=== PATIENT | female | born 1955 | race Caucasian/White ===

== ENCOUNTER → 2023-09-08 | Outpatient (CLI) | payer MEDICARE ==
[~2023-09-08] MED LIST: AERONEB GO1 EACH INH; ALBU2.5V5 INH; ALBU90OI INH; ALORA1 EA11; CYMBALTA60 M1 PO; DOXY100 PO; HOME NEBULIZER1 EACH INH; PRED20 PO; QVAR REDIHALE10.6 G3 INH
[2023-09-08 14:01] LABS: Source, Urine Clean Catch
[2023-09-08 15:03] LABS: Appearance, Urine Cloudy (Clear); Bilirubin, Urine Neg (Neg); Blood, Urine 5+ (Neg); Color, Urine Yellow (P-Yellow); Glucose Qualitative, Urine Neg (Neg); Ketones, Urine Neg (Neg); Leukocyte Esterase, Urine Neg (Neg); Nitrite, Urine Neg (Neg); Protein, Urine 3+ (Neg); Urobilinogen, Urine NORM (Normal)
[2023-09-08 15:34] LABS: Bacteria Many /hpf; Red Blood Cells, Urine TNTC /hpf (0-2); Squamous Epithelial Cells Mod /hpf (Few)
== END ==
LOC: LAB SHORT 13:59 → LAB 13:59
PROVIDERS: Physician Assistant
DX: R35.0 Frequency of micturition (principal)
CPT/HCPCS: 81001; 87086

== ENCOUNTER 2023-11-17 10:27 | Inpatient (IN) | payer MEDICARE ==
[~2023-11-17] VITALS: Ht 170.2 cm; Wt 45.5 kg
[~2023-11-17 10:27] MED LIST changes: -ALORA1 EA11; +ESTRADIOL1 MG PO
[2023-11-17] MEDS ORDERED: NS 1,000 ML IV SCH ×3 (10:40→19:05)
[2023-11-17 11:12] LABS: BASOPHILS ABSOLUTE AUTO 0.07 K/mm3 (0.00-0.23); BASOPHILS PERCENT AUTO 1 % (0-2); EOSINOPHILS PERCENT AUTO 1 % (0-6); Hematocrit 31.7 % (33.0-51.0); Hemoglobin 10.3 g/dL (11.5-16.0); IMMATURE GRAN ABSOLUTE AUTO 0.03 K/mm3 (0.00-0.10); IMMATURE GRAN PERCENT AUTO 0 % (0-1); LYMPHOCYTES ABSOLUTE AUTO 1.93 K/mm3 (0.84-5.20); LYMPHOCYTES PERCENT AUTO 25 % (21-46); MONOCYTES ABSOLUTE AUTO 0.57 K/mm3 (0.16-1.47); MONOCYTES PERCENT AUTO 7 % (4-13); Mean Corpuscular HGB Conc 32.5 g/dL (31.5-36.5); Mean Corpuscular Volume 98 fL (80-100); NEUTROPHILS ABSOLUTE AUTO 4.99 K/mm3 (1.96-9.15); NEUTROPHILS PERCENT AUTO 65 % (41-73); Platelet Count 536 K/mm3 (150-400); RDW Coefficient Variation 16.8 % (11.7-14.2); RDW Standard Deviation 60.2 fL (35.1-46.3); Red Blood Cell Count 3.22 M/mm3 (3.80-5.20); White Blood Cell Count 7.69 K/mm3 (4.00-11.30)
[2023-11-17 11:30] LABS: Magnesium, Blood 2.6 mg/dL (1.6-2.4)
[2023-11-17 11:46] LABS: Albumin, Blood 4.1 g/dL (3.4-5.0); Albumin/Globulin Ratio 1.1 (0.8-1.8); Bilirubin, Total 0.5 mg/dL (0.1-1.0); Bun/Creatinine Ratio 26.4 (12.0-20.0); Calcium, Blood 8.8 mg/dL (8.5-10.1); Creatinine, Blood 1.29 mg/dL (0.40-1.00); Globulin, Blood 3.9 g/dL (2.2-4.0); Phosphorus, Blood 3.1 mg/dL (2.5-4.9); Potassium, Blood 2.4 mmol/L (3.5-5.5)
[2023-11-17 12:27] LABS: Thyroid Stimulating Hormone 3.78 uIU/mL (0.360-4.800)
[2023-11-17] MEDS ORDERED: Potassium Chloride 20 MEQ TabCR PO ONE ×2 (12:55→19:00)
[2023-11-17] MEDS ORDERED: Potassium Chl 20MEQ/Water100ML 100 ML IV ONE ×2 (12:55→17:55)
[2023-11-17 13:07] LABS: Source, Urine Clean Catch
[2023-11-17 13:18] LABS: Appearance, Urine Hazy (Clear); Bilirubin, Urine Neg (Neg); Blood, Urine 5+ (Neg); Color, Urine Yellow (P-Yellow); Glucose Qualitative, Urine Neg (Neg); Ketones, Urine 3+ (Neg); Leukocyte Esterase, Urine 2+ (Neg); Nitrite, Urine Neg (Neg); Protein, Urine 3+ (Neg); Specific Gravity, Urine 1.015 (1.003-1.022); Urobilinogen, Urine NORM (Normal)
[2023-11-17 13:31] LABS: Bacteria Many /hpf
[2023-11-17 13:32] LABS: Squamous Epithelial Cells Many /hpf (Few)
[2023-11-17 13:33] LABS: Hyaline Casts 0-2 /lpf (0-2)
[2023-11-17 13:34] LABS: Mucus Light (0-Heavy)
[2023-11-17] MEDS ORDERED: CefTRIAXone Sodium 1,000 MG in NS 50 ML IV ONE (17:55)
[2023-11-17] MEDS ORDERED: Ondansetron HCl 2 MG / ML 2ML Vial IV PRN (19:00)
[2023-11-17] MEDS ORDERED: Ipratropium/Albuterol SulF 2.5-0.5MG/3 ML Amp INH SCH (19:05)
[2023-11-17] MEDS ORDERED: Acetaminophen 325 MG TABLET PO PRN (19:05)
[2023-11-17] MEDS ORDERED: Albuterol 2.5 MG/3 ML VIAL INH PRN (19:05)
[2023-11-17] MEDS ORDERED: Potassium Chl 20MEQ/Water100ML 100 ML IV STA (19:12)
[2023-11-17 21:40] VITALS: BP 95/65
[2023-11-17 22:46] LABS: Base Excess Venous -21.8 mmol/L; Bicarbonate Venous 9.4 mmol/L (24.0-30.0); PCO2 Venous 30.5 mmHg (38-42); pH Blood Venous 7.06 (7.34-7.37)
[2023-11-17] MEDS ORDERED: CefTRIAXone Sodium 1,000 MG in NS 100 ML IV SCH (23:00)
[2023-11-17] MEDS ORDERED: Sodium Bicarb 8.4% 1 MEQ/ML 50 ML Vial IV ONE (23:45)
[2023-11-17] MEDS ORDERED: Sodium Bicarb 8.4% Inj 100 MEQ in Sodium Chloride 0.45% 1,000 ML IV SCH (23:50)
[2023-11-18 04:08] VITALS: BP 109/56
--- NOTE | 2023-11-18 05:11 | NUR ---
SHIFT SUMMARY PT A&OX3-4 AND FORGETFUL AT TIMES, SBA-1P ASSIST, TOLERATING PO, VOIDING, AND DENIED PAIN. PT HAD 3 INCONTINENT LARGE, DARK BROWN BM'S. PT pH 7.06, SODIUM BICARB INFUSING AT 75MLS/HR. CALL LIGHT WITHIN REACH AND PT ABLE TO MAKE NEEDS KNOWN.
[2023-11-18 05:39] LABS: Base Excess Venous -12.9 mmol/L; Bicarbonate Venous 14.7 mmol/L (24.0-30.0); PCO2 Venous 33.8 mmHg (38-42); pH Blood Venous 7.24 (7.34-7.37)
[2023-11-18 06:40] LABS: Bun/Creatinine Ratio 28.2 (12.0-20.0); Calcium, Blood 8.3 mg/dL (8.5-10.1); Creatinine, Blood 0.92 mg/dL (0.40-1.00); Potassium, Blood 2.9 mmol/L (3.5-5.5)
[2023-11-18 07:36] VITALS: BP 110/86
[2023-11-18] MEDS ORDERED: Heparin Sodium,Porcine 5,000 UNIT/0.5 ML SDV SC SCH (09:00)
[2023-11-18 15:30] VITALS: BP 98/52
--- NOTE | 2023-11-18 18:30 | NUR ---
SHIFT SUMMARY PATIENT ALERT AND INTERACTIVE BUT CONFUSED AT TIMES. PATIENT EASILY REDIRECTED AND COOPERATIVE. BED ALARM AND CHAIR ALARM USED FOR SAFETY. PATIENT NOT CALLING BEFORE ATTEMPTING TO AMBULATE. PATIENT UP WITH STAND BY ASSIST. PT AND OT EVALUATED. PATIENT PASSING NON FORMED DARK STOOLS. PATIENT TELLING FAMILY THAT SHE IS GOING HOME TODAY. REMINDED PATIENT THAT WE DO NOT HAVE A DISCHARGE PLAN YET.
[2023-11-18 19:43] VITALS: BP 96/53
[2023-11-18 21:50] LABS: Bun/Creatinine Ratio 27.9 (12.0-20.0); Calcium, Blood 8.1 mg/dL (8.5-10.1); Creatinine, Blood 0.86 mg/dL (0.40-1.00); Potassium, Blood 2.4 mmol/L (3.5-5.5)
[2023-11-18] MEDS ORDERED: Potassium Chloride 40 MEQ in NS 250 ML IV ONE (21:55)
[2023-11-18] MEDS ORDERED: Potassium Chloride 20 MEQ TabCR PO ONE (21:55)
[2023-11-18] MEDS ORDERED: NS 250 ML IV PRN (22:00)
[2023-11-19 02:16] VITALS: BP 90/51
[2023-11-19 04:48] LABS: BASOPHILS ABSOLUTE AUTO 0.02 K/mm3 (0.00-0.23); BASOPHILS PERCENT AUTO 0 % (0-2); EOSINOPHILS ABSOLUTE AUTO 0.13 K/mm3 (0.00-0.68); EOSINOPHILS PERCENT AUTO 2 % (0-6); Hematocrit 22.7 % (33.0-51.0); Hemoglobin 7.7 g/dL (11.5-16.0); IMMATURE GRAN ABSOLUTE AUTO 0.01 K/mm3 (0.00-0.10); IMMATURE GRAN PERCENT AUTO 0 % (0-1); LYMPHOCYTES ABSOLUTE AUTO 1.51 K/mm3 (0.84-5.20); LYMPHOCYTES PERCENT AUTO 28 % (21-46); MONOCYTES ABSOLUTE AUTO 0.44 K/mm3 (0.16-1.47); MONOCYTES PERCENT AUTO 8 % (4-13); Mean Corpuscular HGB 32.5 pg (26.0-34.0); Mean Corpuscular HGB Conc 33.9 g/dL (31.5-36.5); Mean Corpuscular Volume 96 fL (80-100); Mean Platelet Volume 9.8 fL (9.1-12.4); NEUTROPHILS ABSOLUTE AUTO 3.25 K/mm3 (1.96-9.15); NEUTROPHILS PERCENT AUTO 61 % (41-73); Platelet Count 310 K/mm3 (150-400); RDW Coefficient Variation 16.9 % (11.7-14.2); RDW Standard Deviation 58.2 fL (35.1-46.3); Red Blood Cell Count 2.37 M/mm3 (3.80-5.20); White Blood Cell Count 5.36 K/mm3 (4.00-11.30)
[2023-11-19 06:09] LABS: Albumin, Blood 2.9 g/dL (3.4-5.0); Bilirubin, Total 0.3 mg/dL (0.1-1.0); Bun/Creatinine Ratio 25.1 (12.0-20.0); Calcium, Blood 8.1 mg/dL (8.5-10.1); Creatinine, Blood 0.76 mg/dL (0.40-1.00); Potassium, Blood 3.3 mmol/L (3.5-5.5); Total Protein, Blood 5.9 g/dL (6.4-8.2)
--- NOTE | 2023-11-19 06:40 | NUR ---
SHIFT SUMMARY PT HAD CRITICAL K LAB OF 2.9. NOTIFIED AND ORDER FOR IV AND PO K GIVEN. PT GIVEN K PER ORDERS AND K LAB NOW 3.3. PT'S HGB NOW 7.7 FROM PREVIOUS LAB OF 10.3. PT ADMITS TO DARK BM'S AND ABD CRAMPING. THIS NURSE CALLED HOSPITALIST X2. ATTEMPT TO MAKE CONTACT WAS UNSUCCESSFUL. NO OTHER ACUTE CHANGES THIS SHIFT. CALL LIGHT WITHIN REACH AND PT ABLE TO MAKE NEEDS KNOWN.
[2023-11-19 07:48] VITALS: BP 89/44
[2023-11-19] MEDS ORDERED: Potassium Chloride 20 MEQ TabCR PO SCH (08:00)
[2023-11-19 12:37] LABS: BASOPHILS ABSOLUTE AUTO 0.04 K/mm3 (0.00-0.23); BASOPHILS PERCENT AUTO 1 % (0-2); EOSINOPHILS ABSOLUTE AUTO 0.11 K/mm3 (0.00-0.68); EOSINOPHILS PERCENT AUTO 2 % (0-6); Hematocrit 22.4 % (33.0-51.0); Hemoglobin 7.3 g/dL (11.5-16.0); IMMATURE GRAN ABSOLUTE AUTO 0.02 K/mm3 (0.00-0.10); IMMATURE GRAN PERCENT AUTO 0 % (0-1); LYMPHOCYTES ABSOLUTE AUTO 1.65 K/mm3 (0.84-5.20); LYMPHOCYTES PERCENT AUTO 31 % (21-46); MONOCYTES ABSOLUTE AUTO 0.51 K/mm3 (0.16-1.47); MONOCYTES PERCENT AUTO 9 % (4-13); Mean Corpuscular HGB 31.9 pg (26.0-34.0); Mean Corpuscular HGB Conc 32.6 g/dL (31.5-36.5); Mean Corpuscular Volume 98 fL (80-100); NEUTROPHILS ABSOLUTE AUTO 3.08 K/mm3 (1.96-9.15); NEUTROPHILS PERCENT AUTO 57 % (41-73); Platelet Count 297 K/mm3 (150-400); RDW Coefficient Variation 17.5 % (11.7-14.2); RDW Standard Deviation 61.3 fL (35.1-46.3); Red Blood Cell Count 2.29 M/mm3 (3.80-5.20); White Blood Cell Count 5.41 K/mm3 (4.00-11.30)
[2023-11-19 13:11] LABS: Bun/Creatinine Ratio 18.1 (12.0-20.0); Creatinine, Blood 0.83 mg/dL (0.40-1.00); Potassium, Blood 3.1 mmol/L (3.5-5.5)
[2023-11-19 15:12] VITALS: BP 112/56
[2023-11-19] MEDS ORDERED: Pantoprazole Sodium 40 MG Injection IV SCH (17:00)
--- NOTE | 2023-11-19 19:01 | NUR ---
SHIFT SUMMARY PATIENT ALERT AND INDEPENDENT IN THE ROOM. PATIENT NEEDING ASSISTANCE WITH ADL'S AND EASILY CONFUSED ON WHAT TO DO WITH TOILETING. PATIENT PASSING DARK BLACK STOOLS. STOOL SAMPLE SENT TO LAB FOR GUAIC. PATINET INCONTINENT/CONTINENT WITH BOWEL AND BLADDER. PATIENT ABLE TO ANSWER MOST ORIENTATION QUESTIONS WELL. PATIENT IS HOPEFUL TO GO HOME TOMORROW.
[2023-11-19 21:31] VITALS: BP 97/51
[2023-11-20 03:29] VITALS: BP 98/55
--- NOTE | 2023-11-20 04:38 | NUR ---
SHIFT SUMMARY PT SLEPT MUCH OF THE NIGHT. PT PLEASANT AND COOPERATIVE. WILL CONTINUE TO MONITOR.
[2023-11-20 06:10] LABS: BASOPHILS ABSOLUTE AUTO 0.03 K/mm3 (0.00-0.23); BASOPHILS PERCENT AUTO 1 % (0-2); EOSINOPHILS ABSOLUTE AUTO 0.19 K/mm3 (0.00-0.68); EOSINOPHILS PERCENT AUTO 4 % (0-6); Hematocrit 22.5 % (33.0-51.0); IMMATURE GRAN ABSOLUTE AUTO 0.02 K/mm3 (0.00-0.10); IMMATURE GRAN PERCENT AUTO 0 % (0-1); LYMPHOCYTES ABSOLUTE AUTO 1.63 K/mm3 (0.84-5.20); LYMPHOCYTES PERCENT AUTO 30 % (21-46); MONOCYTES ABSOLUTE AUTO 0.57 K/mm3 (0.16-1.47); MONOCYTES PERCENT AUTO 11 % (4-13); Mean Corpuscular HGB 31.8 pg (26.0-34.0); Mean Corpuscular HGB Conc 31.1 g/dL (31.5-36.5); Mean Corpuscular Volume 102 fL (80-100); Mean Platelet Volume 10.6 fL (9.1-12.4); NEUTROPHILS ABSOLUTE AUTO 2.99 K/mm3 (1.96-9.15); NEUTROPHILS PERCENT AUTO 55 % (41-73); Platelet Count 261 K/mm3 (150-400); RDW Coefficient Variation 17.8 % (11.7-14.2); RDW Standard Deviation 65.5 fL (35.1-46.3); White Blood Cell Count 5.43 K/mm3 (4.00-11.30)
[2023-11-20 06:49] LABS: Albumin, Blood 2.6 g/dL (3.4-5.0); Albumin/Globulin Ratio 0.8 (0.8-1.8); Bilirubin, Total 0.2 mg/dL (0.1-1.0); Bun/Creatinine Ratio 28.8 (12.0-20.0); Calcium, Blood 8.3 mg/dL (8.5-10.1); Creatinine, Blood 0.62 mg/dL (0.40-1.00); Globulin, Blood 3.1 g/dL (2.2-4.0); Potassium, Blood 4.2 mmol/L (3.5-5.5); Total Protein, Blood 5.7 g/dL (6.4-8.2)
[2023-11-20 08:08] VITALS: BP 84/69
[2023-11-20 12:42] LABS: Stool Occult Blood Guaiac 1 Pos (Neg)
[2023-11-20 15:00] VITALS: BP 111/56
--- NOTE | 2023-11-20 16:16 | NUR ---
PHONED PHYSICIAN TALKED WITH DR IN REGARD TO DROPPING HCB, RBC, AND HCT LEVELS. ASKED WHAT HE WOULD LIKE TO DO GOING FURTHER FOR THE PATIENT IN REGARD TO POTENTIAL TESTING OR GI CONSULT. PHYSICIAN STATED HE WOULD ORDER LABS FOR B12 AND FOLATE WELL SUPPLEMENTS. TALKED ABOUT POTENTIAL DISCHARGE TOMORROW ONCE LABS ARE BACK.
--- NOTE | 2023-11-20 17:30 | NUR ---
END OF SHIFT SUMMARY PT IS PLEASANT, A&0X4. IN NO RESPIRATORY DISTRESS ON ROOM AIR. PT HAS HAD A GREAT APPETITE TODAY. UP TO THE RESTROOM MULTIPLE TIMES, AND HAS REPORTED BLACK STOOLS. POTENTIAL DISCHARGE TOMORROW PER PHYSICIAN.
--- NOTE | 2023-11-20 19:13 | NUR ---
PATIENT HANDOFF RECIEVED AROUN 1700. PATIENT WITH BLACK STOOLS X2 DAYS, PATIENT REPORTS BEIGE STOOL X [address] VILLARREAL NOTIFIED AND ORDERED GI CONSULT. CALL PALCED TO DR TRONCOSO AT [phone]
[2023-11-20 19:36] VITALS: BP 91/62
[2023-11-21 03:17] VITALS: BP 96/57
[2023-11-21 05:20] LABS: BASOPHILS ABSOLUTE AUTO 0.05 K/mm3 (0.00-0.23); BASOPHILS PERCENT AUTO 1 % (0-2); EOSINOPHILS PERCENT AUTO 5 % (0-6); Hematocrit 23.3 % (33.0-51.0); Hemoglobin 7.3 g/dL (11.5-16.0); IMMATURE GRAN ABSOLUTE AUTO 0.01 K/mm3 (0.00-0.10); IMMATURE GRAN PERCENT AUTO 0 % (0-1); LYMPHOCYTES ABSOLUTE AUTO 1.24 K/mm3 (0.84-5.20); LYMPHOCYTES PERCENT AUTO 30 % (21-46); MONOCYTES ABSOLUTE AUTO 0.39 K/mm3 (0.16-1.47); MONOCYTES PERCENT AUTO 10 % (4-13); Mean Corpuscular HGB 31.5 pg (26.0-34.0); Mean Corpuscular HGB Conc 31.3 g/dL (31.5-36.5); Mean Corpuscular Volume 100 fL (80-100); Mean Platelet Volume 10.2 fL (9.1-12.4); NEUTROPHILS ABSOLUTE AUTO 2.19 K/mm3 (1.96-9.15); NEUTROPHILS PERCENT AUTO 54 % (41-73); Platelet Count 250 K/mm3 (150-400); RDW Coefficient Variation 17.5 % (11.7-14.2); RDW Standard Deviation 64.2 fL (35.1-46.3); Red Blood Cell Count 2.32 M/mm3 (3.80-5.20); White Blood Cell Count 4.08 K/mm3 (4.00-11.30)
--- NOTE | 2023-11-21 06:06 | NUR ---
SHIFT SUMMARY. PATIENT IS AOX4. PATIENT ADMITTED FOR TOXIC METABOLIC ENCEPHALOPATHY. NO ACUTE CHANGES NOTED. PATIENT IS INDEPENDENT IN ROOM. PATIENT DENIES PAIN. PATIENT CALLS APPROPRIATELY AND IS ABLE TO MAKE HER NEEDS KNOWN. BED IS LOCKED IN THE LOWEST POSITION WITH CALL LIGHT IN REACH. NO S/S OF DISTRESS NOTED. CARE IS ONGOING.
[2023-11-21 06:12] LABS: Albumin, Blood 2.7 g/dL (3.4-5.0); Albumin/Globulin Ratio 0.9 (0.8-1.8); Bilirubin, Total 0.2 mg/dL (0.1-1.0); Bun/Creatinine Ratio 22.3 (12.0-20.0); Calcium, Blood 8.7 mg/dL (8.5-10.1); Creatinine, Blood 0.76 mg/dL (0.40-1.00); Globulin, Blood 3.1 g/dL (2.2-4.0); Potassium, Blood 4.5 mmol/L (3.5-5.5); Total Protein, Blood 5.8 g/dL (6.4-8.2)
[2023-11-21 07:55] VITALS: BP 106/57
[2023-11-21] MEDS ORDERED: Folic Acid 1 MG TAB PO SCH (09:00)
--- NOTE | 2023-11-21 09:00 | NUR ---
pt sitting up in bed, a/ox4, pleasant and cooperative with care, follows commands well, denies pain, but states she's a bit shakey, lungs are clear t/o, resp even and unlabored, no cough noted, hrr, no edema noted, ppp+2, cap refill <3 sec, vs stable, afebrile, piv to r and l wrists, sites are clear and patent, btx4, abd flat soft nontender, voids without diff, does have pullups on for accidents, skin c/w/d, maew, fabiano, call light in reach.
[2023-11-21 15:24] VITALS: BP 113/62
--- NOTE | 2023-11-21 18:11 | NUR ---
pt made several statements today that she is going home today, but she isn't, she is doing well, uneventful day, no acute changes this shift, call light in reach.
[2023-11-21 20:31] VITALS: BP 111/60
[2023-11-22 04:46] VITALS: BP 106/64
--- NOTE | 2023-11-22 05:11 | NUR ---
SHIFT SUMMARY. PATIENT ADMITTED WITH TOXIC METABOLIC ENCEPHALOPATHY. PATIENT INDEPENDEDNT IN ROOM. PATIENT IS AOX4-PATIENT IS ABLE TO ANSWER ALL ORIENTATION QUESTIONS APPROPARIATELY BUT APPEARS TO BE CONFUSED. PATIENT TOLD THIS RN IHSAN THAT "I AM SUPPOSE TO BE GOING HOME, THE HEAD OF THIS DEPARTMENT TOLD ME HIMSELF THAT I WAS GOING HOME TODAY AND HE CAME IN SEVERAL TIMES. I WILL HAVE TO CALL HIM IF I AM NOT GOING HOME SO HE CAN FIGURE OUT WHATS GOING ON". PATIENT IS COOPERATIVE WITH CARE AND PLEASANT. PATIENT IS ABLE TO REPOSITION SELF IN BED. PATIENTS BED IS LOCKED IN THE LOWEST POSITION WITH CALL LIGHT IN REACH. CARE IS ONGOING.
[2023-11-22 07:47] VITALS: BP 115/59
--- NOTE | 2023-11-22 09:00 | NUR ---
pt laying in bed watching tv, a/ox3-4, some confusion noted about her going home, she seems fixated on going home and states the head odilia came in and said she would be going in a few hrs, this has gone on for two days, follows commands well, denies pain, lungs are clear t/o, resp even and unlabored, no cough noted, hrr, no edema noted, ppp+2, cap refill <3sec, vs stable, afebrile, piv to right and left fa's, btx4, abd flat soft nontender, voids without diff, skin c/w/d, maew, fabiano, call light in reach.
[2023-11-22 10:17] LABS: BASOPHILS ABSOLUTE AUTO 0.03 K/mm3 (0.00-0.23); BASOPHILS PERCENT AUTO 1 % (0-2); EOSINOPHILS ABSOLUTE AUTO 0.26 K/mm3 (0.00-0.68); EOSINOPHILS PERCENT AUTO 5 % (0-6); Hematocrit 23.9 % (33.0-51.0); Hemoglobin 7.4 g/dL (11.5-16.0); IMMATURE GRAN ABSOLUTE AUTO 0.01 K/mm3 (0.00-0.10); IMMATURE GRAN PERCENT AUTO 0 % (0-1); LYMPHOCYTES ABSOLUTE AUTO 1.47 K/mm3 (0.84-5.20); LYMPHOCYTES PERCENT AUTO 27 % (21-46); MONOCYTES PERCENT AUTO 7 % (4-13); Mean Corpuscular HGB 31.6 pg (26.0-34.0); Mean Corpuscular Volume 102 fL (80-100); Mean Platelet Volume 10.2 fL (9.1-12.4); NEUTROPHILS PERCENT AUTO 60 % (41-73); Platelet Count 268 K/mm3 (150-400); RDW Coefficient Variation 17.1 % (11.7-14.2); RDW Standard Deviation 64.3 fL (35.1-46.3); Red Blood Cell Count 2.34 M/mm3 (3.80-5.20); White Blood Cell Count 5.37 K/mm3 (4.00-11.30)
[2023-11-22] MEDS ORDERED: FOLI1 PO (11:50)
--- NOTE | 2023-11-22 14:45 | NUR ---
pt has been discharged to home, new meds faxed to her pharmacy, iv's removed intact, left via wheelchair with all her belongings with pearler in attendence.
== END 2023-11-22 14:40 | disposition home or self-care (01) | DRG 917 ==
LOC: ER 10:27 → MEDS 10:28 → ENPENDDIS 11-22 11:32 → MEDS 11-22 14:40
PROVIDERS: Family Medicine; Internal Medicine; Nurse Practitioner Acute Care; Physician Assistant; ADMIT Internal Medicine
DX: T65.891A Toxic effect of other specified substances, accidental (unintentional), initial encounter (principal); G92.8 Other toxic encephalopathy; E87.21 Acute metabolic acidosis; N18.30 Chronic kidney disease, stage 3 unspecified; J44.9 Chronic obstructive pulmonary disease, unspecified; E78.5 Hyperlipidemia, unspecified; R35.0 Frequency of micturition; D50.9 Iron deficiency anemia, unspecified; D63.8 Anemia in other chronic diseases classified elsewhere; K25.9 Gastric ulcer, unspecified as acute or chronic, without hemorrhage or perforation; R19.5 Other fecal abnormalities; F10.90 Alcohol use, unspecified, uncomplicated; E53.8 Deficiency of other specified B group vitamins; E87.6 Hypokalemia; F17.210 Nicotine dependence, cigarettes, uncomplicated; G89.29 Other chronic pain; M79.606 Pain in leg, unspecified; E86.0 Dehydration; Z79.899 Other long term (current) drug therapy; Z79.890 Hormone replacement therapy; Z79.52 Long term (current) use of systemic steroids
CPT/HCPCS: 36415; 70450; 80048; 80053; 81001; 82270; 82607; 82746; 82803; 83735; 84100; 84132; 84443; 85025; 87086; 93005; 93010; 94640; 94664; 94760; 96361; 96365; 96366; 96367; 96372; 96376; 97110; 97116; 97161; 97530; 99285-25; A9270; C9113; G0378; J0696; J1644; J3480; J7030; J7050; P9612

== ENCOUNTER → 2023-11-26 | Outpatient (CLI) | payer MEDICARE ==
[~2023-11-26] MED LIST changes: +FOLI1 PO
[2023-11-26 11:46] LABS: Hematocrit 21.8 % (33.0-51.0); Hemoglobin 6.6 g/dL (11.5-16.0)
[2023-11-26 13:59] LABS: Percent Saturation 5.7 % (15.0-50.0)
== END | disposition home or self-care (01) ==
LOC: LAB 11:41 → LAB SHORT 11:41
PROVIDERS: Physician Assistant
DX: D64.9 Anemia, unspecified (principal)
CPT/HCPCS: 82728; 83540; 83550; 85014; 85018